=== PATIENT | male | born 1965 | race African-American/Black ===

== ENCOUNTER 2017-10-19 14:37 | Emergency (ER) | payer OTHER ==
[2017-10-19 14:50] VITALS: BP 131/75; PULSE 85; TEMP 98.1; BMI 25.7
--- NOTE | 2017-10-19 14:52 | PDOC ---
Rapid Medical Evaluation Time Seen by Provider: 10/19/17 14:46 Medical Evaluation: 10/19/17 14:47 The patient presents with a chief complaint of: L knee pain for one week, swelling and pain 7/10 pain. Also jock itch on and off for 2-3 months OTC not working. I have performed a brief in-person evaluation of this patient; Pertinent physical exam findings: TTP L Lower knee I have ordered the following: Nothing The patient will proceed to the ED for further evaluation.
--- NOTE | 2017-10-19 16:25 | PDOC ---
History of Present Illness - General Chief Complaint: Pain, Acute Stated Complaint: LT KNEE PAIN Time Seen by Provider: 10/19/17 14:46 History Source: Patient Exam Limitations: No Limitations - History of Present Illness Initial Comments: 10/19/17 16:19 c/o left knee pain after a fall one week ago. Pt also c/o jock itch not improving with OTC antifungal creams. Pt requesting the antifungal pills, they have worked in the past. no fever no chills, neg HIV neg Hepatitis. Pt is IDDM. Past History - Past Medical History Allergies/Adverse Reactions: Allergies Allergy/AdvReac Type Severity Reaction Status Date / Time No Known Allergies Allergy Verified 10/19/17 14:50 Home Medications: Ambulatory Orders Fluconazole 150 mg PO ONCE #4 tablet 10/19/17 Insulin Regular [NOVOLIN R VIAL *IVPUSH / ER / ICU Only*] 0 units SQ TID COPD: No Diabetes: Yes (IDDM) - Suicide/Smoking/Psychosocial Hx Smoking History: Current every day smoker Have you smoked in the past 12 months: Yes Number of Cigarettes Smoked Daily: 10 Information on smoking cessation initiated: No Hx Alcohol Use: No Drug/Substance Use Hx: No *Physical Exam - Vital Signs Last Vital Signs Temp Pulse Resp BP Pulse Ox 98.1 F 85 17 131/75 98 10/19/17 14:47 10/19/17 14:47 10/19/17 14:47 10/19/17 14:47 10/19/17 14:47 - Physical Exam General Appearance: Yes: Nourished, Appropriately Dressed HEENT: positive: EOMI, ALICJA, Normal ENT Inspection, TMs Normal, Pharynx Normal Neck: positive: Supple. negative: Tender Respiratory/Chest: positive: Lungs Clear, Normal Breath Sounds Cardiovascular: positive: Regular Rhythm, Regular Rate Gastrointestinal/Abdominal: positive: Normal Bowel Sounds, Soft Musculoskeletal: positive: Normal Inspection Extremity: positive: Normal Capillary Refill, Normal Inspection, Normal Range of Motion, Tender (lateral knee , no swelling or deformity ) Integumentary: positive: Normal Color, Dry, Warm Neurologic: positive: Fully Oriented, Alert, Normal Mood/Affect, Normal Response , Motor Strength 5/5 ED Treatment Course - LABORATORY CBC & Chemistry Diagram: 10/19/17 16:30 - RADIOLOGY Radiology Studies Ordered: Category Date Time Status KNEE 3 POS-LEFT [RAD] Stat Radiology 10/19/17 15:57 Ordered Medical Decision Making - Medical Decision Making 10/19/17 16:23 left knee pain after fall one week ago jock itch for months not improving with OTC creams and powders pt asking for antifungal 10/19/17 17:30 will check LFT's prior to starting antifungals pt understands the need for follow up to monitor liver function tests while on the medication' *DC/Admit/Observation/Transfer Diagnosis at time of Disposition: Jock itch Strain of knee Qualifiers: Encounter type: initial encounter Laterality: left Qualified Code(s): S86.912A - Strain of unspecified muscle(s) and tendon(s) at lower leg level, left leg, initial encounter - Discharge Dispostion Disposition: HOME Condition at time of disposition: Good - Prescriptions Prescriptions: Fluconazole 150 mg PO ONCE #4 tablet - Referrals Referrals: Aashish Thorpe MD [Staff Physician] - Yolanda Aguayo MD [Staff Physician] - - Patient Instructions Additional Instructions: apply warm compresses to the knee every 3hrs for 20 minutes can help with pain you can use a knee wrap while awake. 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
[2017-10-19 17:26] LABS: ALBUMIN 3.7 g/dl (3.4-5.0); ANION GAP 4 (8-16); BILIRUBIN,DIRECT < 0.2 mg/dL (0.0-0.2); BILIRUBIN,TOTAL 0.3 mg/dL (0.2-1.0); CALCIUM 8.9 mg/dL (8.5-10.1); CO2 31 mmol/L (21-32); CREATININE 1.2 mg/dL (0.7-1.3); GLUCOSE,RANDOM 155 mg/dL (74-106); SGOT/AST 13 U/L (15-37); SGPT/ALT 24 U/L (12-78)
[2017-10-19 17:27] LABS: ALK PHOS 126 U/L (45-117)
== END 2017-10-19 18:34 | disposition home or self-care (01) ==
LOC: JERFT 14:37
DX: S86.912A Strain of unspecified muscle(s) and tendon(s) at lower leg level, left leg, initial encounter (principal); B35.6 Tinea cruris; F17.210 Nicotine dependence, cigarettes, uncomplicated; E11.9 Type 2 diabetes mellitus without complications; Z79.4 Long term (current) use of insulin; W18.39XA Other fall on same level, initial encounter; Y93.89 Activity, other specified; Y92.9 Unspecified place or not applicable
CPT/HCPCS: 36415; 73562-TC-LT; 80053; 80076; 99281-25